=== PATIENT | male | born 1960 | race Caucasian/White ===

== ENCOUNTER → 2016-03-15 | Outpatient (CLI) | payer OTHER ==
[~2016-03-15] VITALS: Ht 177.8 cm; Wt 97.7 kg
[~2016-03-15] MED LIST: FLEXERIL 1010 MG/TAB PO; HUMALOG100 U/ML SQ; LIPITOR 40MG TA40 MG PO; NORCO 325 MG-7.1 TAB PO; PROTONIX 40MG T40 MG PO; VIAGRA 25MG TAB25 MG; VOLTAREN 75 DR75 MG PO; WELLBUTRIN XL300 M1 PO; ZANTAC 300300 MG PO
[2016-03-15 13:43] VITALS: BP 154/99; PULSE 69
[2016-03-15 14:45] VITALS: BP 151/64; PULSE 73
== END ==
LOC: COL.RAD 12:30
DX: M51.06 Intervertebral disc disorders with myelopathy, lumbar region (principal)
CPT/HCPCS: J3301

== ENCOUNTER 2018-03-07 09:26 | Emergency (ER) | payer OTHER ==
[~2018-03-07] VITALS: Ht 177.8 cm; Wt 106.8 kg
[2018-03-07 10:19] LABS: BASO # 0.1 (0.0-0.2); BASO % 1.2 % (0.0-2.0); EOS # 0.2 (0.0-0.7); EOS % 1.8 % (0-4.0); GRAN # 7.6 (1.4-6.5); GRAN % 70.7 % (42.2-75.2); LYMPH # 2.1 (1.2-3.4); LYMPH % 19.6 % (20.0-51.0); MEAN CELL VOLUME 92 fl (80.0-100.0); MEAN CORPUSCULAR HGB CONC 34 g/dl (33.0-37.0); MEAN PLATELET VOLUME 9.9 fl (7.4-10.4); MONO # 0.7 (0.1-0.6); MONO % 6.1 % (1.7-9.3); PLATELET COUNT 317 K/mm3 (130-400); RED BLOOD COUNT 6.48 M/mm3 (4.20-5.60); REDCELL DISTRIBUTION WIDTH-CV 14.4 % (11.5-14.5)
[2018-03-07 10:29] LABS: ALANINE AMINOTRANSFERASE 45 U/L (21-72); ALBUMIN 4.4 gm/dL (3.5-5.0); ALKALINE PHOSPHATASE 82 U/L (50-136); ANION GAP 6 mmol/L (7-16); AST,SGOT 36 U/L (15-37); BILIRUBIN,TOTAL 0.7 mg/dL (0.0-1.0); BLOOD UREA NITROGEN 13 mg/dL (9-20); CALCIUM 9.9 mg/dL (8.4-10.2); CARBON DIOXIDE 25 mmol/L (22-30); CHLORIDE 106 mmol/L (98-107); CREATININE, serum 0.69 mg/dL (0.66-1.25); GLUCOSE 164 mg/dL (74-106); HEMATOCRIT 59.7 % (42.0-52.0); MEAN CORPUSCULAR HEMOGLOBIN 31 pg (27.0-31.0); POTASSIUM 4.5 mmol/L (3.4-5.0); SODIUM 138 mmol/L (137-145); TOTAL PROTEIN 7.4 gm/dL (6.4-8.2)
[2018-03-07 10:30] LABS: HEMOGLOBIN 20.4 g/dl (13.5-18.0)
[2018-03-07 10:48] LABS: TROPONIN-I < 0.012 ng/mL (0.000-0.034)
[2018-03-07 10:57] LABS: HEMATOCRIT 57.6 % (42.0-52.0); HEMOGLOBIN 19.6 g/dl (13.5-18.0)
[2018-03-07] MEDS ORDERED: PREDNISONE20 MG PO (11:56)
[2018-03-07] MEDS ORDERED: FLEXERIL 1010 MG/TAB PO (11:56)
[2018-03-07 12:11] VITALS: BP 150/84; PULSE 83; TEMP 96.3
== END 2018-03-07 12:27 | disposition home or self-care (01) ==
LOC: COL.ER 09:26
PROVIDERS: Emergency Medicine
DX: M25.512 Pain in left shoulder (principal); E10.9 Type 1 diabetes mellitus without complications
CPT/HCPCS: J1885; J3010; J7030

== ENCOUNTER → 2019-09-03 | Outpatient (CLI) | payer OTHER ==
[~2019-09-03] MED LIST changes: +PREDNISONE20 MG PO
== END ==
LOC: COL.LAB 10:38
DX: E11.8 Type 2 diabetes mellitus with unspecified complications (principal)

== ENCOUNTER 2020-01-06 09:47 | Emergency (ER) | payer OTHER ==
[~2020-01-06] VITALS: Ht 177.8 cm; Wt 97.7 kg
[2020-01-06 09:55] VITALS: TEMP 97.6
[2020-01-06] MEDS ORDERED: NORVASC 5MG5 MG/TAB PO (10:10)
[2020-01-06] MEDS ORDERED: PRINIVIL10 MG PO (10:10)
[2020-01-06] MEDS ORDERED: NORCO 325 MG-51 TAB PO (11:45)
[2020-01-06 12:16] VITALS: BP 141/80; PULSE 88
== END 2020-01-06 12:17 | disposition home or self-care (01) ==
LOC: COL.ER 09:47
DX: S83.91XA Sprain of unspecified site of right knee, initial encounter (principal); I10 Essential (primary) hypertension; E11.9 Type 2 diabetes mellitus without complications; F17.210 Nicotine dependence, cigarettes, uncomplicated; Z96.652 Presence of left artificial knee joint; Z79.4 Long term (current) use of insulin; W22.8XXA Striking against or struck by other objects, initial encounter; Y93.B9 Activity, other involving muscle strengthening exercises

== ENCOUNTER → 2020-01-29 | Outpatient (CLI) | payer OTHER ==
[~2020-01-29] MED LIST changes: +NORCO 325 MG-51 TAB PO; +NORVASC 5MG5 MG/TAB PO; +PRINIVIL10 MG PO
== END ==
LOC: COL.RAD 13:22
DX: M17.11 Unilateral primary osteoarthritis, right knee (principal)

== ENCOUNTER 2020-05-27 13:58 | Emergency (ER) | payer OTHER ==
[~2020-05-27] VITALS: Ht 177.8 cm; Wt 95.5 kg
[2020-05-27 14:09] VITALS: TEMP 97
[2020-05-27] MEDS ORDERED: NORCO 325 MG-51 TAB PO (16:53)
[2020-05-27 17:09] VITALS: BP 142/86; PULSE 79
== END 2020-05-27 17:09 | disposition home or self-care (01) ==
LOC: COL.ER 13:58
DX: S83.92XA Sprain of unspecified site of left knee, initial encounter (principal); M23.92 Unspecified internal derangement of left knee; I10 Essential (primary) hypertension; F32.9 Major depressive disorder, single episode, unspecified; F17.210 Nicotine dependence, cigarettes, uncomplicated; Z79.4 Long term (current) use of insulin; Z96.653 Presence of artificial knee joint, bilateral; X50.1XXA Overexertion from prolonged static or awkward postures, initial encounter
CPT/HCPCS: L1846